=== PATIENT | male | born 1995 | race Caucasian/White ===

== ENCOUNTER 2023-08-26 11:15 | Emergency (ER) | payer OTHER ==
[2023-08-26 11:25] VITALS: BP 126/81; PULSE 71; RESP 18; TEMP 98; BMI 33.5
[2023-08-26] MEDS: SODIUM CHLORIDE 1,000 ML IV ONE (12:33)
[2023-08-26 12:38] LABS: PH,URINE 6.5 (5.0-8.0); URINE BILIRUBIN NEGATIVE (NEGATIVE); URINE COLOR YELLOW; URINE GLUCOSE (UA) NEGATIVE (NEGATIVE); URINE KETONE NEGATIVE (NEGATIVE); URINE LEUK ESTERASE NEGATIVE (NEGATIVE); URINE NITRITE NEGATIVE (NEGATIVE); URINE PROTEIN NEGATIVE (NEGATIVE); URINE UROBILINOGEN 0.2 mg/dL (0.2-1.0)
[2023-08-26 12:39] LABS: BASO % 0.6 % (0-2.0); HEMATOCRIT 47.6 % (35.4-49); HEMOGLOBIN 16.7 GM/dL (11.7-16.9); LYMPH % 44.2 % (8-40); MCH 31.3 pg (25.7-33.7); MCHC 35.2 g/dl (32.0-35.9); MEAN CELL VOLUME 88.9 fl (80-96); MEAN PLT VOLUME 7.7 fl (7.5-11.1); MONO % 6.7 % (3.8-10.2); NEUT % 46.5 % (42.8-82.8); PLATELET COUNT 253 10^3/uL (134-434); RBC 5.35 M/mm3 (4.00-5.60); RDW 12.4 % (11.9-15.9); WHITE BLOOD COUNT 7.2 K/mm3 (4.0-10.0)
[2023-08-26 12:52] LABS: URINE APPEARANCE CLEAR
[2023-08-26 13:05] LABS: CALCIUM 9.7 mg/dL (8.5-10.1)
[2023-08-26 13:06] LABS: ALBUMIN 4.2 g/dl (3.4-5.0); BLOOD UREA NITROGEN 12.2 mg/dL (7-18)
[2023-08-26 13:09] LABS: CREATININE 0.9 mg/dL (0.55-1.3)
[2023-08-26 13:10] LABS: BILIRUBIN,TOTAL 0.4 mg/dL (0.2-1); TOT PROT 7.7 g/dl (6.4-8.2)
[2023-08-26 13:30] LABS: POTASSIUM 4.2 mmol/L (3.5-5.1)
== END 2023-08-26 14:32 | disposition home or self-care (01) ==
LOC: JER 11:15
PROC: 3E0337Z Introduction of Electrolytic and Water Balance Substance into Peripheral Vein, Percutaneous Approach (ICD-10-PCS; principal; 2023-08-26)
DX: R79.9 Abnormal finding of blood chemistry, unspecified (principal); M62.82 Rhabdomyolysis; R10.30 Lower abdominal pain, unspecified
CPT/HCPCS: 36415; 80053; 81003; 82550; 82553; 85025; 99284-25